=== PATIENT | female | born 1970 | race Caucasian/White ===

== ENCOUNTER 2025-04-16 17:34 | Observation (INO) | payer SELFPAY ==
[2025-04-16] VITALS (15 sets, daily range): BP systolic 86–145; BP diastolic 48–70; PULSE 92–117; RESP 14–22; TEMP 36.6–36.7; O2SAT 28–100; BMI 25.7; BMI 27.9
--- NOTE | 2025-04-16 17:47 | CT_ITS ---
PROCEDURE INFORMATION: Exam: CTA Neck With Contrast Exam date and time: 04/16/2025 8:01 PM Age: 55 years old Clinical indication: Dizziness and giddiness TECHNIQUE: Imaging protocol: Computed tomographic angiography of the neck with contrast. Exam focused on the cervical segments of the vasculature. 3D rendering (Not supervised by radiologist): MIP and/or 3D reconstructed images were created by the technologist. Radiation optimization: All CT scans at this facility use at least one of these dose optimization techniques: automated exposure control; mA and/or kV adjustment per patient size (includes targeted exams where dose is matched to clinical indication); or iterative reconstruction. Contrast material: ISOVUE; Contrast volume: 80 ml; Contrast route: INTRAVENOUS (IV); COMPARISON: CT HEAD/BRAIN WO CON 04/16/2025 7:49 PM FINDINGS: Right common carotid artery: Normal. No stenosis. No dissection or occlusion. Right internal carotid artery: Proximal segment evaluation mildly limited by motion artifact and streak artifact. Moderate-severe distal segment tortuosity with mild kinking but no significant stenosis. No dissection or occlusion. Right external carotid artery: Normal. No stenosis. No dissection or occlusion. Left common carotid artery: Variant origin from the brachiocephalic artery. No stenosis. No dissection or occlusion. Left internal carotid artery: Mild distal segment tortuosity. No stenosis. No dissection or occlusion. Left external carotid artery: Normal. No stenosis. No dissection or occlusion. Right vertebral artery: Right vertebral artery is mildly dominant. No stenosis. No dissection or occlusion. Left vertebral artery: Normal. No stenosis. No dissection or occlusion. Brachiocephalic artery: The brachiocephalic artery is unremarkable. Right subclavian artery: The right subclavian artery is unremarkable. Left subclavian artery: The left subclavian artery is unremarkable. Aorta: The visualized aortic arch demonstrates is unremarkable. 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 Subcentimeter nodules in the right thyroid lobe do not require further evaluation. Soft tissues: No significant soft tissue swelling or hematoma. Bones/joints: No acute osseous abnormalities are identified. Mild cervical spondylosis. Lungs: The visualized pulmonary apices are clear. IMPRESSION: No acute vascular abnormalities. No evidence of arterial occlusion or significant stenosis. COMMENTS: Consistent with the [employer]'s Incidental Findings Committee white paper (J Am Lillian Radiol 2015): In patients aged 35 years and older with an incidental thyroid nodule equal to or greater than 1.[address], MRI or extrathyroidal US, further evaluation with dedicated thyroid US is recommended for patients with normal life expectancy and without comorbidities. For smaller nodules without suspicious features, no further evaluation or follow up is recommended. REFERENCES: NASCET CRITERIA. The degree of stenosis in the cervical segment of the internal carotid artery is based on NASCET criteria. Normal is no stenosis. Mild is less than 50% stenosis. Moderate is 50-69% stenosis. Severe is 70% to 99% stenosis. Total occlusion is no detectable patent lumen.
--- NOTE | 2025-04-16 17:47 | CT_ITS ---
PROCEDURE INFORMATION: Exam: CTA Head With Contrast, Arteriography Exam date and time: 04/16/2025 8:01 PM Age: 55 years old Clinical indication: Dizziness and giddiness TECHNIQUE: Imaging protocol: Computed tomographic angiography of the head with contrast. Exam focused on the arteries. 3D rendering (Not supervised by radiologist): MIP and/or 3D reconstructed images were created by the technologist. Radiation optimization: All CT scans at this facility use at least one of these dose optimization techniques: automated exposure control; mA and/or kV adjustment per patient size (includes targeted exams where dose is matched to clinical indication); or iterative reconstruction. Contrast material: ISOUVE 370; Contrast volume: 80 ml; Contrast route: INTRAVENOUS (IV); COMPARISON: CT HEAD/BRAIN WO CON 04/16/2025 7:49 PM FINDINGS: ANTERIOR CIRCULATION: Right internal carotid artery: The right ICA petrous, cavernous, and supraclinoid segments are unremarkable. Right middle cerebral artery: Unremarkable. No occlusion or significant stenosis. No aneurysm. Right anterior cerebral artery: Unremarkable. No occlusion or significant stenosis. No aneurysm. The anterior communicating artery is unremarkable. Left internal carotid artery: The left ICA petrous, cavernous, and supraclinoid segments are unremarkable. Left middle cerebral artery: Unremarkable. No occlusion or significant stenosis. No aneurysm. Left anterior cerebral artery: Unremarkable. No occlusion or significant stenosis. No aneurysm. POSTERIOR CIRCULATION: Right vertebral artery: Right vertebral artery is dominant. No occlusion or significant stenosis. No aneurysm. Left vertebral artery: Unremarkable. No occlusion or significant stenosis. No aneurysm. Basilar artery: Unremarkable. No occlusion or significant stenosis. No aneurysm. Right posterior cerebral artery: Moderate-sized right posterior communicating artery present with small variant infundibulum at its ICA origin. No occlusion or significant stenosis. No aneurysm. Left posterior cerebral artery: Normal variant persistent origin with hypoplastic left P1 segment. No occlusion or significant stenosis. No aneurysm. Veins: The dural venous sinuses and major cortical veins enhance appropriately without evidence of thrombosis. Brain: No enhancing brain lesions or vascular malformations are identified. Cerebral ventricles: No ventriculomegaly. Paranasal sinuses: Mucous retention cyst versus polyp formation in the left maxillary sinus suggesting mild chronic sinus inflammatory disease. No fluid levels. Visualized paranasal sinuses are otherwise clear. Bones/joints: Unremarkable. No acute fracture. Soft tissues: Unremarkable. IMPRESSION: 1. No acute vascular abnormalities. No evidence of large vessel occlusion or significant stenosis. 2. No acute intracranial process.
--- NOTE | 2025-04-16 17:47 | XR_ITS ---
PROCEDURE INFORMATION: Exam: XR Chest Exam date and time: 04/16/2025 8:02 PM Age: 55 years old Clinical indication: Shortness of breath; Additional info: Shortness of air TECHNIQUE: Imaging protocol: Radiologic exam of the chest. Views: 1 view. COMPARISON: CT ANGIO NECK 04/16/2025 8:01 PM FINDINGS: Lungs: Unremarkable. No consolidation. Pleural spaces: Unremarkable. No pleural effusion. No pneumothorax. Heart/Mediastinum: Unremarkable. No cardiomegaly. Bones/joints: Unremarkable. IMPRESSION: No acute findings.
--- NOTE | 2025-04-16 17:47 | CT_ITS ---
PROCEDURE INFORMATION: Exam: CT Head Without Contrast Exam date and time: 04/16/2025 7:49 PM Age: 55 years old Clinical indication: Dizziness TECHNIQUE: Imaging protocol: Computed tomography of the head without contrast. Radiation optimization: All CT scans at this facility use at least one of these dose optimization techniques: automated exposure control; mA and/or kV adjustment per patient size (includes targeted exams where dose is matched to clinical indication); or iterative reconstruction. COMPARISON: CT HEAD/BRAIN WO CON 04/16/2025 7:49 PM FINDINGS: Brain: Normal. No hemorrhage. Unremarkable white matter. No mass effect. Cerebral ventricles: No ventriculomegaly. Paranasal sinuses: Visualized sinuses are unremarkable. No fluid levels. Mastoid air cells: Visualized mastoid air cells are well aerated. Bones: Unremarkable. No acute fracture. Soft tissues: Unremarkable. IMPRESSION: Stable noncontrast CT brain. No acute intracranial abnormality.
--- NOTE | 2025-04-16 17:57 | ED_ITS ---
Discharge Plan Disposition Patient Disposition: Admitted Condition: Fair Clinical Impressions Clinical Impression: Vertigo, Nausea & vomiting Discharge ED Provider: Guero Birch General Adult HPI <YESI Choudhury - Last Filed: 04/16/25 22:11> General Chief complaint: Anxiety Stated complaint: Nausea and Vomiting Time Seen by Provider: 04/16/25 17:36 Mode of Arrival: EMS Source of Information: Patient Description of Symptoms (Recalled from ER Triage Doc. by RN): Pt reports doing laundry this AM and stood up and began to have dizziy, nausea, and vomiting. Upon EMS arrival pt reports tingling in bilateral hands and arms. Pt is tachypneic during triage. History of Present Illness HPI narrative: 55-year-old female presents emergency department via EMS for dizziness, discharge around 10 or 11 this a.m., when she stood up , she endorses nausea and vomiting and diarrhea all day, she reports numbness all over , has somewhat flight of ideas, but GCS of 15, with actively hyperventilating at the bedside, patient denies any fever or chills, denies any chest pain, shortness of breath, no abdominal pain, does admit to some pain after retching , denies any urinary type symptomatology, denies any constipation, denies any hematuria melena hematochezia or hematemesis, patient takes no other medications at home, has no other real relevant past medical history, denies any alcohol tobacco or other drug use. Initial triage vitals notable for tachycardia, and some tachypnea that improved after the patient was speaking to me. Denies any overt lightheadedness, denies any dizziness when sitting still, does admit to dizziness when moving the head . Onset (ago): hour(s) Related Data Home Medications ?Medication ?Instructions ?Recorded ?Confirmed No Known Home Medications 04/16/2503/22 Allergies Allergy/AdvReac Type Severity Reaction Status Date / Time albuterol AdvReac Mild Numbness Verified 04/16/25 18:01 PFS <YESI Choudhury - Last Filed: 04/16/25 22:11> [facility] Disclaimer: The information contained in this section may have been updated after the patient was seen, as this information can be updated by other users. Social History (Updated 04/16/25 @ 22:11 by YESI Choudhury) Smoking Status: Never smoker alcohol intake: never current occupational status: other Travel in the last 8 weeks?: None Have you lived/traveled outside [place] in past 30 days?: No Contact w/someone who lives/traveled outside US past 30 days?: No Exposure to someone with infectious disease in past 14 days?: No Do you have a fever (greater than 100.4 F or 38 C)?: No Have you tested positive for COVID-19?: No Exposed to someone with COVID-19 in past 14 days?: No Do you have a sore throat?: No Do you have a cough?: No Do you have any weakness?: No Do you have any diarrhea?: No Are you experiencing any unusual bleeding?: No Do you have any muscle aches/pain?: No Do you have any abdominal pain?: No Are you experiencing loss of taste or smell?: No <YESI Choudhury - Last Filed: 04/16/25 22:11> ROS Obtained: Yes All systems reviewed & no additional complaints except as documented Physical Exam <YESI Choudhury - Last Filed: 04/16/25 22:11> General General appearance: alert, in no apparent distress and anxious Comment: Patient has flight of ideas, moderately anxious appearing Head Head exam: atraumatic and normocephalic Eye Eye exam: Present PERRL and EOMI ENT ENT exam: Present mucous membranes moist Neck Neck exam: Present normal inspection Chest Chest inspection: Present normal inspection and symmetric chest wall rise Respiratory Respiratory exam: Present normal lung sounds bilaterally; Absent respiratory distress, wheezes or stridor Cardiovascular Cardiovascular exam: Present normal rhythm and tachycardia Abdominal Exam Abdominal exam: Present soft; Absent tenderness, guarding, rebound or rigidity Extremities Exam Extremities exam: Present normal inspection Neurological Exam Neurological exam: Present alert, oriented X3 and other (Patient moves extremities to command, does somewhat not cooperate with exam, though strength examination is somewhat complicated, GCS of 15, no obvious focal neurological deficits) Psychiatric Psychiatric exam: Present normal affect and anxious Skin Skin exam: Present warm and dry Medical Decision Making <YESI Choudhury - Last Filed: 04/16/25 22:11> Medical Records Medical records reviewed: Yes I reviewed the patient's medical records. Screening: Per USPSTF and CDC recommendations, given the prevalence of disease in our region, it is our hospital?s policy to screen for HIV and viral Hepatitis for all patients aged 18 and over and those with ongoing risk factors. [place] Inquiry Pt receiving controlled substance: No [place] was queried for this patient: No Vital Signs: 04/16/25 17:41 04/16/25 17:46 04/16/25 18:00 Temperature 97.8 F Temperature Source Oral Pulse Rate 117 H 92 H Pulse Rate [Left] 100 H Respiratory Rate 22 Blood Pressure 99/70 L 114/67 Blood Pressure [Left Arm] 145/70 H Blood Pressure Mean 79 Blood Pressure Mean [Left Arm] 95 Blood Pressure Source Blood Pressure Source [Left Arm] Automatic Cuff Blood Pressure Position 02 Sat by Pulse Oximetry 99 70 L 99 Oxygen Delivery Method Room Air 04/16/25 18:30 04/16/25 19:37 04/16/25 20:30 Temperature Temperature Source Pulse Rate 98 H 94 H 97 H Pulse Rate [Left] Respiratory Rate Blood Pressure 107/55 L 119/49 L 89/57 L Blood Pressure [Left Arm] Blood Pressure Mean 72 Blood Pressure Mean [Left Arm] Blood Pressure Source Blood Pressure Source [Left Arm] Blood Pressure Position 02 Sat by Pulse Oximetry 99 100 98 Oxygen Delivery Method 04/16/25 20:36 04/16/25 20:53 04/16/25 21:00 Temperature Temperature Source Pulse Rate 97 H 99 H 98 H Pulse Rate [Left] Respiratory Rate Blood Pressure 86/48 L 100/61 L 88/48 L Blood Pressure [Left Arm] Blood Pressure Mean Blood Pressure Mean [Left Arm] Blood Pressure Source Blood Pressure Source [Left Arm] Blood Pressure Position 02 Sat by Pulse Oximetry 98 100 100 Oxygen Delivery Method 04/16/25 21:09 04/16/25 21:20 04/16/25 21:31 Temperature Temperature Source Pulse Rate 97 H 98 H Pulse Rate [Left] Respiratory Rate Blood Pressure 99/59 L 104/52 L 92/51 L Blood Pressure [Left Arm] Blood Pressure Mean Blood Pressure Mean [Left Arm] Blood Pressure Source Blood Pressure Source [Left Arm] Blood Pressure Position 02 Sat by Pulse Oximetry 100 96 97 Oxygen Delivery Method 04/16/25 22:22 04/16/25 22:29 04/16/25 22:40 Temperature 97.8 F Temperature Source Oral Pulse Rate 94 H Pulse Rate [Left] Respiratory Rate 18 Blood Pressure 104/59 L 119/49 L Blood Pressure [Left Arm] Blood Pressure Mean Blood Pressure Mean [Left Arm] Blood Pressure Source Automatic Cuff Blood Pressure Source [Left Arm] Blood Pressure Position Sitting 02 Sat by Pulse Oximetry 28 L Oxygen Delivery Method Room Air Room Air Lab Data Lab Results 04/16/25 19:10: WBC 11.3 H, RBC 5.20, Hgb 15.2, Hct 43.5, MCV 83.7, MCH 29.2, MCHC 34.9, RDW 12.1, Plt Count 294, MPV 8.9, Neut % (Auto) 86.8 H, Lymph % (Auto) 10.8, [place] % (Auto) 1.7, Eos % (Auto) 0.0 L, Baso % (Auto) 0.3, Neut # (Auto) 9.9 H, Lymph # (Auto) 1.2, [place] # (Auto) 0.2, Eos # (Auto) 0.0, Baso # (Auto) 0.0, D-Dimer 0.46, Sodium 137, Potassium 3.4 L, Chloride 101, Carbon Dioxide 23, Anion Gap 16.4 H, BUN 15, Creatinine 0.70, Estimated Creat Clear 100, Estimated GFR 88, Est GFR ( Amer) 106, Glucose 133 H, Calcium 10.2, Magnesium 2.1, Total Bilirubin 1.1, AST 32, ALT 20, Alkaline Phosphatase 83, Troponin I < 0.01, NT-Pro-B Natriuret Pep 61.6, Total Protein 8.4 H, Albumin 4.6, Globulin 3.8 H, Albumin/Globulin Ratio 1.2, TSH 0.87, Thyroxine (T4) 11.1 H , Plasma/Serum Alcohol < 10 04/16/25 19:23: Urine Color Yellow, Urine Appearance Sl cloudy, Urine pH >= 9.0 H, Ur Specific [place] 1.015, Urine Protein Negative, Urine Glucose (UA) Negative, Urine Ketones 3+, Urine Blood Negative, Urine Nitrate Negative, Urine Bilirubin Negative, Urine Urobilinogen 0.2, Ur Leukocyte Esterase Negative, Urine RBC 5-10, Urine WBC 3-5, Ur Squamous Epith Cells 10-20, Amorphous Sediment 1+, Urine Bacteria 2+, Urine Mucus 1+, Urine Opiates Screen Negative, Urine Methadone Screen Negative, Ur Barbituates Screen Negative, Ur Phencyclidine Scrn Negative, Ur Amphetamines Screen Negative, U Benzodiazepines Scrn Negative, Urine Cocaine Screen Negative, U Marijuana (THC) Screen Negative 04/16/25 21:07: Troponin I < 0.01 04/17/25 07:20 04/17/25 07:20 Orders (Tests/Meds): ED MEDICATIONS Generic Name Dose Route Start Last Admin Trade Name Frewade PRN Reason Stop Dose Admin Acetaminophen 650 mg 04/16/25 22:03 Acetaminophen 325mg Tab PO 05/16/25 22:02 Q4HP PRN Fever or Mild Pain (1-3) Al Hydrox/Mg Hydrox/Simethicone 30 ml 04/16/25 22:03 Aluminum/Magnesium/Simethicone 30ml Udc PO 05/16/25 22:02 QIDP PRN Dyspepsia Enoxaparin Sodium 40 mg 04/17/25 09:00 04/17/25 08:46 Enoxaparin 40mg/0.4ml Syringe SUBCUT 05/17/25 08:59 40 mg DAILY SHAYLA Administration Meclizine HCl 25 mg 04/17/25 11:57 Meclizine 25mg Tablet PO 05/17/25 11:56 TIDP PRN Dizziness Melatonin 5 mg 04/16/25 23:25 Melatonin 5mg Tablet PO 05/16/25 23:24 HSP PRN Insomnia Ondansetron HCl 4 mg 04/16/25 22:03 Ondansetron 4mg/2ml Vial IV 05/16/25 22:02 Q8HP PRN Nausea Sodium Chloride 10 ml 04/16/25 20:13 04/16/25 20:14 Sodium Chloride 0.9% 10ml Syr (Rad Only) IV 05/16/25 20:12 10 ml NEEDED PRN Administration Maintain IV Site Discontinued Medications Generic Name Dose Route Start Last Admin Trade Name Freq PRN Reason Stop Dose Admin Diazepam 5 mg 04/16/25 21:59 04/16/25 22:04 Diazepam 10mg/2ml Syringe IV 04/16/25 22:00 5 mg ONCE ONE Administration Hydroxyzine HCl 50 mg 04/16/25 23:40 04/16/25 23:59 Hydroxyzine 50mg/Ml Vial IM 04/16/25 23:41 50 mg ONCE ONE Administration Lactated Ringer's 1,000 mls @ 999 mls/hr 04/16/25 20:43 04/16/25 20:48 Lactated Ringer's 1000 Ml Bag IV 04/16/25 21:43 999 mls/hr .Q1H1M ONE Administration Sodium Chloride 1,000 mls @ 75 mls/hr 04/16/25 22:15 04/16/25 22:22 Sod Chlor 0.9% 1000ml Bag IV 05/16/25 22:14 75 mls/hr .[id number] SHAYLA Administration Iopamidol 80 ml 04/16/25 20:13 04/16/25 20:14 Iopamidol-370 (76%);100ml Bottle IV 04/16/25 20:14 80 ml ONCE ONE Administration Meclizine HCl 50 mg 04/16/25 17:48 04/16/25 18:12 Meclizine 25mg Tablet PO 04/16/25 17:49 50 mg ONCE ONE Administration Meclizine HCl 25 mg 04/16/25 22:10 04/16/25 22:22 Meclizine 25mg Tablet PO 04/16/25 22:11 25 mg TID ONE Administration Meclizine HCl 25 mg 04/17/25 07:50 04/17/25 08:46 Meclizine 25mg Tablet PO 05/16/25 22:09 25 mg TID SHAYLA Administration Ondansetron HCl 4 mg 04/16/25 20:43 04/16/25 20:48 Ondansetron 4mg/2ml Vial IV 04/16/25 20:44 4 mg ONCE ONE Administration Potassium Chloride 40 meq 04/17/25 09:00 04/17/25 08:49 Potassium Chloride 20meq Tab PO 04/17/25 09:01 Not Given ONCE ONE Scopolamine 1 each 04/17/25 11:57 04/17/25 13:04 Scopolamine 1.5mg/72hrs Patch TD 04/17/25 11:58 1 each ONCE ONE Administration Sodium Chloride 50 ml 04/16/25 20:13 04/16/25 20:14 0.9 % Sodium Chloride 50 Ml Vial IV 04/16/25 20:14 50 ml ONCE ONE Administration ORDERS Category Date Time Status CT angio head Stat Cat Scan 04/16/25 17:[address] angio neck Stat Cat Scan 04/16/25 17:[address] head/brain wo con Stat Cat Scan 04/16/25 17:47 Completed XR chest portable Stat Exams 04/16/25 17:47 Completed Basic Metabolic Panel AMLAB Lab 04/17/25 07:20 Completed Complete Blood Count Auto Diff AMLAB Lab 04/17/25 07:20 Completed Complete Blood Count Auto Diff Stat Lab 04/16/25 19:10 Completed Comprehensive Metabolic Panel Stat Lab 04/16/25 19:10 Completed D-Dimer Stat Lab 04/16/25 19:10 Completed Drug Screen,Urine Stat Lab 04/16/25 19:23 Completed Ethyl Alcohol Stat Lab 04/16/25 19:10 Completed Magnesium Stat Lab 04/16/25 19:10 Completed NT Pro Brain Natriuretic Pep. Stat Lab 04/16/25 19:10 Completed T4 (Thyroxine) Stat Lab 04/16/25 19:10 Completed TSH [Thyroid Stimulating Hormone] Stat Lab 04/16/25 19:10 Completed Troponin I Q3H Lab 04/16/25 21:07 Completed Troponin I Q3H Lab 04/17/25 00:37 Completed Troponin I Stat Lab 04/16/25 19:10 Completed Urinalysis and Microscopic Stat Lab 04/16/25 19:23 Completed Urine Culture Stat Micro 04/16/25 19:23 Received Medical Decision Narrative: 55-year-old female presents the emergency department with dizziness, nausea and vomiting, differential diagnose include but not limited to peripheral vertigo, central vertigo, anxiety reaction, panic attack, electrolyte disturbance, cardiac arrhythmia, acute psychosis, acute intoxication, among others. Discussed patient case with physician Will obtain basic labs, D-dimer, UDS, urinalysis, ethyl alcohol level, magnesium level proBNP, TSH/T4, troponin, EKG, CT head without contrast, CTA head and neck without contrast, and CXR. Give 50 mg p.o. meclizine for dizziness. CBC is notable for mild leukocytosis 11.3. D-dimer is 0.46, thus negative for VTE. CMP noted for minimal hypokalemia at 3.4, otherwise unremarkable CMP, ethyl alcohol level within normal limits. Urine is notable for elevated urine pH of 9, 3+ ketonuria, negative nitrites, negative hematuria, negative leukocyte esterase. TSH within normal limits, free T4 is minimally elevated 11.1 UDS negative. Patient still complaining of some dizziness and nausea, will give 4 mg IV Zofran and 1 L LR IV. Reviewed the patient's CTA neck with and without contrast along with the corresponding radiological report, no acute vascular abnormality, no evidence of arterial occlusion or significant stenosis. I reviewed the patient's CT head without contrast along the corresponding radiologic report, no acute intracranial abnormality. I reviewed the patient's CTA head with and without contrast on the corresponding radiologic report, no acute vascular abnormalities, no evidence of large vessel occlusion or significant stenosis, no acute intracranial process. I reviewed the patient's chest x-ray along with corresponding radiologic report, no acute findings. I along with the attending physician attempted to perform Amado maneuver to alleviate the patient's symptomatology, unsuccessful, patient still having vertiginous type symptomatology, nausea and vomiting, due to persistent dizziness, and vertiginous symptoms, will give 5 mg IV Valium, I do think there is a anxiety type reaction as patient is actively hyperventilating, but does still have vertiginous type symptomatology, thus will admit for MRI brain without contrast and possible consultation with physical therapy/vestibular therapy. I discussed this plan for admission with the patient and family at the bedside. Patient and family agree with current mission plan/treatment plan. I discussed this patient's case with the hospitalist provider Tatiana Naik APRN at approximately 10 PM, she is agreement with current admission plan/treatment plan. <Guero Birch MD - Last Filed: 04/17/25 15:13> Vital Signs: 04/16/25 17:41 04/16/25 17:46 04/16/25 18:00 Temperature 97.8 F Temperature Source Oral Pulse Rate 117 H 92 H Pulse Rate [Left] 100 H Respiratory Rate 22 Blood Pressure 99/70 L 114/67 Blood Pressure [Left Arm] 145/70 H Blood Pressure Mean 79 Blood Pressure Mean [Left Arm] 95 Blood Pressure Source Blood Pressure Source [Left Arm] Automatic Cuff Blood Pressure Position 02 Sat by Pulse Oximetry 99 70 L 99 Oxygen Delivery Method Room Air 04/16/25 18:30 04/16/25 19:37 04/16/25 20:30 Temperature Temperature Source Pulse Rate 98 H 94 H 97 H Pulse Rate [Left] Respiratory Rate Blood Pressure 107/55 L 119/49 L 89/57 L Blood Pressure [Left Arm] Blood Pressure Mean 72 Blood Pressure Mean [Left Arm] Blood Pressure Source Blood Pressure Source [Left Arm] Blood Pressure Position 02 Sat by Pulse Oximetry 99 100 98 Oxygen Delivery Method 04/16/25 20:36 04/16/25 20:53 04/16/25 21:00 Temperature Temperature Source Pulse Rate 97 H 99 H 98 H Pulse Rate [Left] Respiratory Rate Blood Pressure 86/48 L 100/61 L 88/48 L Blood Pressure [Left Arm] Blood Pressure Mean Blood Pressure Mean [Left Arm] Blood Pressure Source Blood Pressure Source [Left Arm] Blood Pressure Position 02 Sat by Pulse Oximetry 98 100 100 Oxygen Delivery Method 04/16/25 21:09 04/16/25 21:20 04/16/25 21:31 Temperature Temperature Source Pulse Rate 97 H 98 H Pulse Rate [Left] Respiratory Rate Blood Pressure 99/59 L 104/52 L 92/51 L Blood Pressure [Left Arm] Blood Pressure Mean Blood Pressure Mean [Left Arm] Blood Pressure Source Blood Pressure Source [Left Arm] Blood Pressure Position 02 Sat by Pulse Oximetry 100 96 97 Oxygen Delivery Method 04/16/25 22:22 04/16/25 22:29 04/16/25 22:40 Temperature 97.8 F Temperature Source Oral Pulse Rate 94 H Pulse Rate [Left] Respiratory Rate 18 Blood Pressure 104/59 L 119/49 L Blood Pressure [Left Arm] Blood Pressure Mean Blood Pressure Mean [Left Arm] Blood Pressure Source Automatic Cuff Blood Pressure Source [Left Arm] Blood Pressure Position Sitting 02 Sat by Pulse Oximetry 28 L Oxygen Delivery Method Room Air Room Air Lab Data Lab Results 04/16/25 19:10: WBC 11.3 H, RBC 5.20, Hgb 15.2, Hct 43.5, MCV 83.7, MCH 29.2, MCHC 34.9, RDW 12.1, Plt Count 294, MPV 8.9, Neut % (Auto) 86.8 H, Lymph % (Auto) 10.8, [place] % (Auto) 1.7, Eos % (Auto) 0.0 L, Baso % (Auto) 0.3, Neut # (Auto) 9.9 H, Lymph # (Auto) 1.2, [place] # (Auto) 0.2, Eos # (Auto) 0.0, Baso # (Auto) 0.0, D-Dimer 0.46, Sodium 137, Potassium 3.4 L, Chloride 101, Carbon Dioxide 23, Anion Gap 16.4 H, BUN 15, Creatinine 0.70, Estimated Creat Clear 100, Estimated GFR 88, Est GFR ( Amer) 106, Glucose 133 H, Calcium 10.2, Magnesium 2.1, Total Bilirubin 1.1, AST 32, ALT 20, Alkaline Phosphatase 83, Troponin I < 0.01, NT-Pro-B Natriuret Pep 61.6, Total Protein 8.4 H, Albumin 4.6, Globulin 3.8 H, Albumin/Globulin Ratio 1.2, TSH 0.87, Thyroxine (T4) 11.1 H , Plasma/Serum Alcohol < 10 04/16/25 19:23: Urine Color Yellow, Urine Appearance Sl cloudy, Urine pH >= 9.0 H, Ur Specific [place] 1.015, Urine Protein Negative, Urine Glucose (UA) Negative, Urine Ketones 3+, Urine Blood Negative, Urine Nitrate Negative, Urine Bilirubin Negative, Urine Urobilinogen 0.2, Ur Leukocyte Esterase Negative, Urine RBC 5-10, Urine WBC 3-5, Ur Squamous Epith Cells 10-20, Amorphous Sediment 1+, Urine Bacteria 2+, Urine Mucus 1+, Urine Opiates Screen Negative, Urine Methadone Screen Negative, Ur Barbituates Screen Negative, Ur Phencyclidine Scrn Negative, Ur Amphetamines Screen Negative, U Benzodiazepines Scrn Negative, Urine Cocaine Screen Negative, U Marijuana (THC) Screen Negative 04/16/25 21:07: Troponin I < 0.01 Orders (Tests/Meds): ED MEDICATIONS Generic Name Dose Route Start Last Admin Trade Name Freq PRN Reason Stop Dose Admin Acetaminophen 650 mg 04/16/25 22:03 Acetaminophen 325mg Tab PO 05/16/25 22:02 Q4HP PRN Fever or Mild Pain (1-3) Al Hydrox/Mg Hydrox/Simethicone 30 ml 04/16/25 22:03 Aluminum/Magnesium/Simethicone 30ml Udc PO 05/16/25 22:02 QIDP PRN Dyspepsia Enoxaparin Sodium 40 mg 04/17/25 09:00 04/17/25 08:46 Enoxaparin 40mg/0.4ml Syringe SUBCUT 05/17/25 08:59 40 mg DAILY SHAYLA Administration Meclizine HCl 25 mg 04/17/25 11:57 Meclizine 25mg Tablet PO 05/17/25 11:56 TIDP PRN Dizziness Melatonin 5 mg 04/16/25 23:25 Melatonin 5mg Tablet PO 05/16/25 23:24 HSP PRN Insomnia Ondansetron HCl 4 mg 04/16/25 22:03 Ondansetron 4mg/2ml Vial IV 05/16/25 22:02 Q8HP PRN Nausea Sodium Chloride 10 ml 04/16/25 20:13 04/16/25 20:14 Sodium Chloride 0.9% 10ml Syr (Rad Only) IV 05/16/25 20:12 10 ml NEEDED PRN Administration Maintain IV Site Discontinued Medications Generic Name Dose Route Start Last Admin Trade Name Ricq PRN Reason Stop Dose Admin Diazepam 5 mg 04/16/25 21:59 04/16/25 22:04 Diazepam 10mg/2ml Syringe IV 04/16/25 22:00 5 mg ONCE ONE Administration Hydroxyzine HCl 50 mg 04/16/25 23:40 04/16/25 23:59 Hydroxyzine 50mg/Ml Vial IM 04/16/25 23:41 50 mg ONCE ONE Administration Lactated Ringer's 1,000 mls @ 999 mls/hr 04/16/25 20:43 04/16/25 20:48 Lactated Ringer's 1000 Ml Bag IV 04/16/25 21:43 999 mls/hr .Q1H1M ONE Administration Sodium Chloride 1,000 mls @ 75 mls/hr 04/16/25 22:15 04/16/25 22:22 Sod Chlor 0.9% 1000ml Bag IV 05/16/25 22:14 75 mls/hr .[id number] SHAYLA Administration Iopamidol 80 ml 04/16/25 20:13 04/16/25 20:14 Iopamidol-370 (76%);100ml Bottle IV 04/16/25 20:14 80 ml ONCE ONE Administration Meclizine HCl 50 mg 04/16/25 17:48 04/16/25 18:12 Meclizine 25mg Tablet PO 04/16/25 17:49 50 mg ONCE ONE Administration Meclizine HCl 25 mg 04/16/25 22:10 04/16/25 22:22 Meclizine 25mg Tablet PO 04/16/25 22:11 25 mg TID ONE Administration Meclizine HCl 25 mg 04/17/25 07:50 04/17/25 08:46 Meclizine 25mg Tablet PO 05/16/25 22:09 25 mg TID SHAYLA Administration Ondansetron HCl 4 mg 04/16/25 20:43 04/16/25 20:48 Ondansetron 4mg/2ml Vial IV 04/16/25 20:44 4 mg ONCE ONE Administration Potassium Chloride 40 meq 04/17/25 09:00 04/17/25 08:49 Potassium Chloride 20meq Tab PO 04/17/25 09:01 Not Given ONCE ONE Scopolamine 1 each 04/17/25 11:57 04/17/25 13:04 Scopolamine 1.5mg/72hrs Patch TD 04/17/25 11:58 1 each ONCE ONE Administration Sodium Chloride 50 ml 04/16/25 20:13 04/16/25 20:14 0.9 % Sodium Chloride 50 Ml Vial IV 04/16/25 20:14 50 ml ONCE ONE Administration ORDERS Category Date Time Status CT angio head Stat Cat Scan 04/16/25 17:[address] angio neck Stat Cat Scan 04/16/25 17:[address] head/brain wo con Stat Cat Scan 04/16/25 17:47 Completed XR chest portable Stat Exams 04/16/25 17:47 Completed Basic Metabolic Panel AMLAB Lab 04/17/25 07:20 Completed Complete Blood Count Auto Diff AMLAB Lab 04/17/25 07:20 Completed Complete Blood Count Auto Diff Stat Lab 04/16/25 19:10 Completed Comprehensive Metabolic Panel Stat Lab 04/16/25 19:10 Completed D-Dimer Stat Lab 04/16/25 19:10 Completed Drug Screen,Urine Stat Lab 04/16/25 19:23 Completed Ethyl Alcohol Stat Lab 04/16/25 19:10 Completed Magnesium Stat Lab 04/16/25 19:10 Completed NT Pro Brain Natriuretic Pep. Stat Lab 04/16/25 19:10 Completed T4 (Thyroxine) Stat Lab 04/16/25 19:10 Completed TSH [Thyroid Stimulating Hormone] Stat Lab 04/16/25 19:10 Completed Troponin I Q3H Lab 04/16/25 21:07 Completed Troponin I Q3H Lab 04/17/25 00:37 Completed Troponin I Stat Lab 04/16/25 19:10 Completed Urinalysis and Microscopic Stat Lab 04/16/25 19:23 Completed Urine Culture Stat Micro 04/16/25 19:23 Received ECG Data Tracing #1: I reviewed this ECG and interpreted as documented below: (This rhythm 90 bpm with OR 177, QRS 90, QTc 422[address] depressions in 2 3 and aVF without reciprocal elevations. Normal axis) Medical Decision Narrative: 55-year-old female presents the emergency department with dizziness, nausea and vomiting, differential diagnose include but not limited to peripheral vertigo, central vertigo, anxiety reaction, panic attack, electrolyte disturbance, cardiac arrhythmia, acute psychosis, acute intoxication, among others. Discussed patient case with physician Will obtain basic labs, D-dimer, UDS, urinalysis, ethyl alcohol level, magnesium level proBNP, TSH/T4, troponin, EKG, CT head without contrast, CTA head and neck without contrast, and CXR. Give 50 mg p.o. meclizine for dizziness. CBC is notable for mild leukocytosis 11.3. D-dimer is 0.46, thus negative for VTE. CMP noted for minimal hypokalemia at 3.4, otherwise unremarkable CMP, ethyl alcohol level within normal limits. Urine is notable for elevated urine pH of 9, 3+ ketonuria, negative nitrites, negative hematuria, negative leukocyte esterase. TSH within normal limits, free T4 is minimally elevated 11.1 UDS negative. Patient still complaining of some dizziness and nausea, will give 4 mg IV Zofran and 1 L LR IV. Reviewed the patient's CTA neck with and without contrast along with the corresponding radiological report, no acute vascular abnormality, no evidence of arterial occlusion or significant stenosis. I reviewed the patient's CT head without contrast along the corresponding radiologic report, no acute intracranial abnormality. I reviewed the patient's CTA head with and without contrast on the corresponding radiologic report, no acute vascular abnormalities, no evidence of large vessel occlusion or significant stenosis, no acute intracranial process. I reviewed the patient's chest x-ray along with corresponding radiologic report, no acute findings. I along with the attending physician attempted to perform Amado maneuver to alleviate the patient's symptomatology, unsuccessful, patient still having vertiginous type symptomatology, nausea and vomiting, due to persistent dizziness, and vertiginous symptoms, will give 5 mg IV Valium, I do think there is a anxiety type reaction as patient is actively hyperventilating, but does still have vertiginous type symptomatology, thus will admit for MRI brain without contrast and possible consultation with physical therapy/vestibular therapy. I discussed this plan for admission with the patient and family at the bedside. Patient and family agree with current mission plan/treatment plan. I discussed this patient's case with the hospitalist provider Tatiana Naik APRN at approximately 10 PM, she is agreement with current admission plan/treatment plan. I was consulted by the MARY ANN, and we discussed the complexity of the problems being addressed. I approved the treatment and management plan for this patient's care in the Emergency Department, thus performing a substantive portion of the medical decision making. Guero Birch MD Critical Care <YESI Choudhury - Last Filed: 04/16/25 22:11> Critical Care Time Critical Care Time: No
[2025-04-16] MEDS: MECLIZINE 25MG TABLET 50 MG PO (18:12)
--- NOTE | 2025-04-16 18:16 | ECG_ITS ---
APPROVED REPORT Exam: Resting ECG HR:90 bpm ECG Measurements Heart Rate 90 AXES IN 177 P 59 QRSd 90 QRS 42 QT 374 T 62 QTc 422 Conclusion Sinus rhythm Lateral and inferior depressions without reciprocal elevations Electronically signed by : SAÚL SAHNI, 04/16/2025 22:56:17
--- NOTE | 2025-04-16 19:19 | PC.NURSE ---
Davi FISCHER at bedside for report, starting IV #20 in right AC. Pt informed she needed to provide a urine sample, offered bedside, bed fuchs or pure wick. Pt is afraid to move, wishes to try a bedpan with daughter at bedside.
[2025-04-16 19:23] LABS: Basophils % 0.3 % (0.1-2.0); Hematocrit 43.5 % (37.0-47.0); Hemoglobin 15.2 g/dL (12.2-16.2); Immature Granulocytes # 0.04 10^3uL; Immature Granulocytes % 0.4 %; Lymphocytes # 1.2 K/mm3 (0.7-4.5); Lymphocytes % 10.8 % (10-50); Mean Corpuscular HGB Conc 34.9 g/dL (31.8-35.4); Mean Corpuscular Hemoglobin 29.2 pg (27.0-31.2); Mean Corpuscular Volume 83.7 fl (81-99); Mean Platelet Volume 8.9 fl (7.4-10.4); Monocytes # 0.2 K/mm3 (0.1-1.0); Monocytes % 1.7 % (1.7-9.3); Neutrophils # 9.9 K/mm3 (1.8-7.8); Neutrophils % 86.8 % (37.0-80.0); Nucleated Red Blood Cells # 0 10^3/uL; Nucleated Red Blood Cells % 0 %; Platelet Count 294 K/mm3 (142-424); Red Cell Distribution Width 12.1 % (11.5-17.5); Red Cell Distribution Width-SD 36.9 fL; White Blood Count 11.3 K/mm3 (4.8-10.8)
[2025-04-16 19:28] LABS: Microscopic, Urine URINE MICROSCOPIC (MICROSCOPIC)
[2025-04-16 19:29] LABS: Alanine Aminotransferase 20 U/L (12-78); Albumin Level 4.6 g/dl (3.5-5.0); Albumin/Globulin Ratio 1.2 (1.1-1.8); Alkaline Phosphatase 83 U/L (38-126); Anion Gap 16.4 mEq/L (5-15); Aspartate Amino Transferase 32 U/L (14-36); Bilirubin,Total 1.1 mg/dl (0.2-1.3); Blood Urea Nitrogen 15 mg/dl (7-17); Calcium 10.2 mg/dl (8.4-10.2); Carbon Dioxide 23 mmol/L (22.0-30.0); Chloride 101 mmol/L (98-107); Creatinine Clearance Estimated 100 mL/min (50-200); Estimated Glomerular Filt Rate 88 ml/min (>60); GFR (African American) 106 ML/MIN (>60); Globulin 3.8 g/dL (1.3-3.2); Glucose 133 mg/dl (74-100); Magnesium 2.1 mg/dl (1.6-2.3); Potassium 3.4 mmoL/L (3.5-5.1); Sodium 137 mmol/L (136-145); Total Protein,Serum 8.4 g/dl (6.3-8.2)
[2025-04-16 19:33] LABS: Ethyl Alcohol < 10 mg/dl (0-10)
[2025-04-16 19:33] LABS: Appearance,Urine SL CLOUDY (Clear); Bilirubin,Urine Negative (Negative); Blood, Urine Negative (Negative); Color,Urine YELLOW (Yellow); Glucose,Urine (UA) Negative (Negative); Ketones,Urine 3+ (Negative); Leukocyte Esterase,Urine Negative (Negative); Nitrate,Urine Negative (Negative); Protein,Urine Negative (Negative); Specific Gravity, Urine 1.015 (1.005-1.030); Urobilinogen,Urine 0.2 EU/dl (0.2)
[2025-04-16 19:34] LABS: D-Dimer 0.46 ug/mL (0.0-0.5)
[2025-04-16 19:35] LABS: PH,Urine >= 9.0 (5.0-8.5)
[2025-04-16 19:41] LABS: NT Pro Brain Natriuretic Pep. 61.6 pg/mL (0-125)
[2025-04-16 19:44] LABS: Troponin I < 0.01 ng/ml (0.00-0.034)
[2025-04-16 19:45] LABS: Barbiturates Screen,Urine Negative ng/ml (<200)
[2025-04-16 19:46] LABS: Benzodiazepines Screen,Urine Negative ng/ml (<200)
[2025-04-16 19:46] LABS: T4 (Thyroxine) 11.1 ug/dl (5.53-11.0)
[2025-04-16 19:47] LABS: Amphetamine/Metha Screen,Urine Negative ng/ml (<1000); Methadone Screen,Urine Negative ng/ml (<300)
[2025-04-16 19:48] LABS: Cannabinoid Screen,Urine Negative ng/ml (<50); Cocaine Screen,Urine Negative ng/ml (<300)
[2025-04-16 19:49] LABS: Opiate Screen,Urine Negative ng/ml (<300)
[2025-04-16 19:50] LABS: Amorphous Sediment,Urine 1+ /lpf; Bacteria,Urine 2+ /lpf; Mucus,Urine 1+ /lpf; Phencyclidine Screen,Urine Negative ng/ml (<25)
[2025-04-16 19:59] LABS: Thyroid Stimulating Hormone 0.87 uIU/mL (0.465-4.68)
[2025-04-16] MEDS: SODIUM CHLORIDE 0.9% 10ML SYR (RAD ONLY) 10 ML IV (20:14)
[2025-04-16] MEDS: 0.9 % SODIUM CHLORIDE 50 ML VIAL IV (20:14)
[2025-04-16] MEDS: IOPAMIDOL-370 (76%);100ML BOTTLE 80 ML IV (20:14)
[2025-04-16] MEDS: LACTATED RINGERS 1000ML 1,000 ML 999 ML IV (20:48)
[2025-04-16] MEDS: ONDANSETRON 4MG/2ML VIAL 4 MG IV (20:48)
[2025-04-16 21:42] LABS: Troponin I < 0.01 ng/ml (0.00-0.034)
[2025-04-16] MEDS: diazePAM 10MG/2ML SYRINGE 5 MG IV (22:04)
--- NOTE | 2025-04-16 22:06 | PC.NURSE ---
Amado Maneuver attempted at bedside with Dr Flores. No relief. 5 mg Valium administered pt relaxed at this time. Pt to be admitted for further evaluation
--- NOTE | 2025-04-16 22:21 | P.HP_ITS ---
<Statement entered by Hector Faye MD - 04/17/25 18:29> Rounded on patient after nurse practitioner. Personally examined and interviewed patient. Agree with exam findings and care plan as documented. History of Present Illness *Admission Date: 04/16/25 *Reason for visit:: Vertigo *History of present illness: Ms. Wayne was a 55-year-old female presents ER for evaluation of dizziness. Patient denies any past medical history. She states she was unloading laundry and she went to stand and got dizzy. She states she crawled on all fours and called her daughter. She states that she also called EMS and they told her she was hyperventilating and that there was nothing they can do for her. She states she remained dizzy from 11 100-13 100 today. She states that after she vomited she thought she would feel better but then began to hyperventilate again. She reports she had diarrhea and continued vomiting. She states that she then laid on the floor for 3 hours without moving. She states from there at 1700 she got on the couch and still had no change. She reports tingling all over, diaphoresis, and cold intolerance all day today. She states that every time she moves her head position she vomits. Patient denies fever, cough, congestion, runny nose, chest pain, constipation, headache, lightheadedness, or syncope. [facility] Disclaimer: The information contained in this section may have been updated after the patient was seen, as this information can be updated by other users. Social History (Updated 04/16/25 @ 22:11 by YESI Choudhury) Smoking Status: Never smoker alcohol intake: never current occupational status: other Travel in the last 8 weeks?: None Have you lived/traveled outside [place] in past 30 days?: No Contact w/someone who lives/traveled outside US past 30 days?: No Exposure to someone with infectious disease in past 14 days?: No Do you have a fever (greater than 100.4 F or 38 C)?: No Have you tested positive for COVID-19?: No Exposed to someone with COVID-19 in past 14 days?: No Do you have a sore throat?: No Do you have a cough?: No Do you have any weakness?: No Do you have any diarrhea?: No Are you experiencing any unusual bleeding?: No Do you have any muscle aches/pain?: No Do you have any abdominal pain?: No Are you experiencing loss of taste or smell?: No Review of Systems Constitutional Constitutional: Reports chills, Reports difficulty sleeping (chronic), Denies fever(s) and Denies headache(s) ENT Ears, Nose, Mouth, and Throat: Reports dizziness, Denies headache(s) and Denies nasal congestion *Cardiovascular Cardiovascular: Denies chest pain and Reports dyspnea *Respiratory Respiratory: Denies cough and Reports dyspnea *Gastrointestinal Gastrointestinal: Reports abdominal pain, Reports loose stools, Reports nausea and Reports vomiting *Genitourinary Genitourinary: Reports system reviewed and no additional complaints, except as documented *Musculoskeletal Musculoskeletal: Reports tingling *Neurologic Neurologic: Reports dizziness, Denies headache(s) and Reports tingling Psychiatric Psychiatric: Denies anxiety Meds Home Medications and Allergies Home Medications ?Medication ?Instructions ?Recorded ?Confirmed ?Type No Known Home Medications 04/16/2503/22 History New Prescriptions to Start Prescriptions: Allergies Allergy/AdvReac Type Severity Reaction Status Date / Time albuterol AdvReac Mild Numbness Verified 04/16/25 18:01 Exam Data for Last 24 hours Vital signs and Labs for Last 24 Hours: Temp Pulse Resp BP Pulse Ox O2 Del Method 97.8 F 98 H 22 92/51 L 97 Room Air 04/16/25 17:41 04/16/25 21:31 04/16/25 17:41 04/16/25 21:31 04/16/25 21:31 04/16/25 17:41 Laboratory Results - last 24 hr 04/16/25 19:10: WBC 11.3 H, RBC 5.20, Hgb 15.2, Hct 43.5, MCV 83.7, MCH 29.2, MCHC 34.9, RDW 12.1, Plt Count 294, MPV 8.9, Neut % (Auto) 86.8 H, Lymph % (Auto) 10.8, [place] % (Auto) 1.7, Eos % (Auto) 0.0 L, Baso % (Auto) 0.3, Neut # (Auto) 9.9 H, Lymph # (Auto) 1.2, [place] # (Auto) 0.2, Eos # (Auto) 0.0, Baso # (Auto) 0.0, D-Dimer 0.46, Sodium 137, Potassium 3.4 L, Chloride 101, Carbon Dioxide 23, Anion Gap 16.4 H, BUN 15, Creatinine 0.70, Estimated Creat Clear 100, Estimated GFR 88, Est GFR ( Amer) 106, Glucose 133 H, Calcium 10.2, Magnesium 2.1, Total Bilirubin 1.1, AST 32, ALT 20, Alkaline Phosphatase 83, Troponin I < 0.01, NT-Pro-B Natriuret Pep 61.6, Total Protein 8.4 H, Albumin 4.6, Globulin 3.8 H, Albumin/Globulin Ratio 1.2, TSH 0.87, Thyroxine (T4) 11.1 H , Plasma/Serum Alcohol < 10 04/16/25 19:23: Urine Color Yellow, Urine Appearance Sl cloudy, Urine pH >= 9.0 H, Ur Specific [place] 1.015, Urine Protein Negative, Urine Glucose (UA) Negative, Urine Ketones 3+, Urine Blood Negative, Urine Nitrate Negative, Urine Bilirubin Negative, Urine Urobilinogen 0.2, Ur Leukocyte Esterase Negative, Urine RBC 5-10, Urine WBC 3-5, Ur Squamous Epith Cells 10-20, Amorphous Sediment 1+, Urine Bacteria 2+, Urine Mucus 1+, Urine Opiates Screen Negative, Urine Methadone Screen Negative, Ur Barbituates Screen Negative, Ur Phencyclidine Scrn Negative, Ur Amphetamines Screen Negative, U Benzodiazepines Scrn Negative, Urine Cocaine Screen Negative, U Marijuana (THC) Screen Negative 04/16/25 21:07: Troponin I < 0.01 I & O for Last 24 hours: Intake & Output 04/13/25 04/14/25 04/15/25 04/16/25 23:59 23:59 23:59 23:59 Weight 68.039 kg *Routine HEENT Exam Head: Present normocephalic and atraumatic Eye: Present EOMI ENT: Present mucous membranes moist and oropharynx clear *Routine Neck Exam Neck: Present supple and full ROM *Routine Respiratory Exam Respiratory: Present CTA bilaterally and normal respiratory effort; Absent accessory muscle use or respiratory distress *Routine Cardiovascular Exam Cardiovascular: Present RRR, Normal S1 and Normal S2 *Routine Abdominal Exam Abdominal: Present soft and normoactive bowel sounds; Absent tenderness or distended *Routine Rectal Exam Rectal:: deferred *Routine Genitalia Exam Genitalia:: deferred *Routine Extremities Exam Extremities: Present full ROM, pulses intact and normal capillary refill; Absent edema *Routine Skin Exam Skin: Present intact, dry and warm *Routine Neurological Exam Neurological: Present alert, oriented X3 and CN II-XII intact Comments: grossly anxious Assessment and Plan *Assessment and plan (1) Nausea & vomiting: Status: Acute Category: Medical Code(s): R11.2 - Nausea with vomiting, unspecified Plan: Continue antiemetics as needed (2) Vertigo: Status: Acute Category: Medical Code(s): R42 - Dizziness and giddiness Plan: MRI of the brain pending Meclizine 25 mg 3 times daily NS at 75 mL an hour PT consult (3) Anxiety: Status: Acute Category: Medical Code(s): F41.9 - Anxiety disorder, unspecified Plan: Hydroxyzine 50 mg IM once Hydroxyzine 50 mg p.o. 3 times daily as needed for anxiety (4) On deep vein thrombosis (DVT) prophylaxis: Status: Acute Category: Medical Code(s): Z79.899 - Other manager practice (current) drug therapy Plan: Enoxaparin 40 mg subcu daily Ambulate as tolerated
[2025-04-16] MEDS: MECLIZINE 25MG TABLET 25 MG PO (22:22)
[2025-04-16] MEDS: 0.9 % SODIUM CHLORIDE 1000ML 1,000 ML 75 ML IV (22:22)
[2025-04-16] MEDS: hydrOXYzine 50MG/ML VIAL 50 MG IM (23:59)
[2025-04-17 01:50] LABS: Troponin I < 0.01 ng/ml (0.00-0.034)
--- NOTE | 2025-04-17 03:12 | PC.NURSE ---
upon arrival to med /surg from the ED, Pt. is moaning and crying and very anxious. Pt. difficult to move from ER stretcher to the bed. Pt. c/o dizziness and nausea. Pt. is hyperventilating and c/o shortness of breath, numbness and tingling alll over her body, heavyness in her chest. Pt. insistant something is wrong besides the Vertigo sh was DX. with. Pt. had Fluids, Meclazine and Valium in the ED the medications were not effective, Laura Naik APRN at bedside. to evaluate patient. Spoke to patient about anxiety and the related symptoms of anxiety. Pt. states she does not have anxiety and something is very wrong. Pt. also saying you just want to put me to sleep and not deal with this problem Laura CHANG offered patient medication to control the anxiety symptoms. Pt. refused PO Visteral due to nausea. Pt. given Visteral per IM injection. Post IM injection Pt. did calm down and SOB, heaviness of chest, numbness and tingling resolved. Pt. did fall asleep and has been comfortable . Pt. daughter at bedside.
[2025-04-17 04:00] VITALS: BP 101/43; PULSE 91; RESP 16; TEMP 36.6; O2SAT 97; BMI 28.6
--- NOTE | 2025-04-17 04:54 | PC.NURSE ---
Pt. sleeping , daughter remains at bedside. when patient was calm and anxiety was under control. Pt. was alert and orientated x 4. Pt. on room air. Personal items and call colindres in reach. safety measures in place.
--- NOTE | 2025-04-17 04:59 | PC.NURSE ---
Fresh Ice water given and room trash taken out at 0440 by this SRNA
[2025-04-17 07:46] LABS: Basophils % 0.4 % (0.1-2.0); Eosinophils # 0.1 Kmm3 (0.0-0.4); Eosinophils % 0.6 % (0.1-12.0); Hematocrit 40.6 % (37.0-47.0); Hemoglobin 13.9 g/dL (12.2-16.2); Immature Granulocytes # 0.03 10^3uL; Immature Granulocytes % 0.3 %; Lymphocytes # 2.5 K/mm3 (0.7-4.5); Mean Corpuscular HGB Conc 34.2 g/dL (31.8-35.4); Mean Corpuscular Hemoglobin 29.4 pg (27.0-31.2); Mean Platelet Volume 9.1 fl (7.4-10.4); Monocytes # 0.6 K/mm3 (0.1-1.0); Neutrophils # 7.2 K/mm3 (1.8-7.8); Neutrophils % 68.7 % (37.0-80.0); Nucleated Red Blood Cells # 0 10^3/uL; Nucleated Red Blood Cells % 0 %; Platelet Count 261 K/mm3 (142-424); Red Blood Count 4.72 M/mm3 (4.20-5.40); Red Cell Distribution Width 12.7 % (11.5-17.5); Red Cell Distribution Width-SD 39.7 fL; White Blood Count 10.4 K/mm3 (4.8-10.8)
[2025-04-17 08:00] VITALS: BP 102/51; PULSE 91; RESP 16; TEMP 36.6; O2SAT 98
[2025-04-17 08:21] LABS: Chloride 105 mmol/L (98-107); Sodium 141 mmol/L (136-145)
[2025-04-17 08:22] LABS: Potassium 3.2 mmoL/L (3.5-5.1)
[2025-04-17 08:24] LABS: Blood Urea Nitrogen 12 mg/dl (7-17); Creatinine Clearance Estimated 112 mL/min (50-200); Estimated Glomerular Filt Rate 88 ml/min (>60); GFR (African American) 106 ML/MIN (>60)
[2025-04-17 08:25] LABS: Anion Gap 14.2 mEq/L (5-15); Calcium 8.5 mg/dl (8.4-10.2); Carbon Dioxide 25 mmol/L (22.0-30.0); Glucose 88 mg/dl (74-100)
[2025-04-17] MEDS: ENOXAPARIN 40MG/0.4ML SYRINGE 40 MG SUBCUT (08:46)
[2025-04-17] MEDS: MECLIZINE 25MG TABLET 25 MG PO ×2 (08:46→17:11)
--- NOTE | 2025-04-17 11:58 | EXP.ACUTE.PN ---
Subjective *Date: 04/17/25 *Time: 19:22 Interval history: Still feeling quite dizzy this morning, feels comfortable laying on her right side. States that when she rolls to the left she feels like she is going to throw up. Stable on room air. Threw up overnight with movement, still having nausea but no emerald emesis this morning. Afebrile. Stable on room air. Medical Exam Vital signs and Labs for Last 24 Hours: Vital Signs Temp Pulse Pulse Resp BP BP Pulse Ox 04/17/25 09:00 04/17/25 08:00 04/17/25 07:00 04/17/25 05:00 04/17/25 04:00 97.8 F 91 H 16 101/43 L 97 04/17/25 03:00 04/17/25 01:00 04/16/25 23:45 04/16/25 23:00 98.0 F 95 H 14 104/59 L 98 04/16/25 22:40 97.8 F 94 H 18 119/49 L 04/16/25 22:29 104/59 L 28 L 04/16/25 22:22 04/16/25 21:31 98 H 92/51 L 97 04/16/25 21:20 104/52 L 96 04/16/25 21:09 97 H 99/59 L 100 04/16/25 21:00 98 H 88/48 L 100 04/16/25 20:53 99 H 100/61 L 100 04/16/25 20:36 97 H 86/48 L 98 04/16/25 20:30 97 H 89/57 L 98 04/16/25 19:37 94 H 119/49 L 100 04/16/25 18:30 98 H 107/55 L 99 04/16/25 18:00 92 H 114/67 99 04/16/25 17:46 117 H 99/70 L 70 L 04/16/25 17:41 97.8 F 100 H 22 145/70 H 99 O2 Del Method 04/17/25 09:00 Room Air 04/17/25 08:00 Room Air 04/17/25 07:00 Room Air 04/17/25 05:00 Room Air 04/17/25 04:00 Room Air 04/17/25 03:00 Room Air 04/17/25 01:00 Room Air 04/16/25 23:45 Room Air 04/16/25 23:00 Room Air 04/16/25 22:40 Room Air 04/16/25 22:29 04/16/25 22:22 Room Air 04/16/25 21:31 04/16/25 21:20 04/16/25 21:09 04/16/25 21:00 04/16/25 20:53 04/16/25 20:36 04/16/25 20:30 04/16/25 19:37 04/16/25 18:30 04/16/25 18:00 04/16/25 17:46 04/16/25 17:41 Room Air Intake and Output 04/16/25 04/17/25 04/17/25 23:59 07:59 15:59 Intake Total 1000 / 1000 Balance 1000 / 1000 Intake: Intake, Total IV Amount 1000 / 1000 Lactated Ringers 1000ML 1,000 1000 / 1000 ml @ 999 mls/hr IV .Q1H1M ONE Rx#:[id number] Other: Number of Voids 1 Number of Unmeasured Voids 1 Weight 74.253 kg 76.204 kg Patient Weight 04/17/25 23:59 Weight 76.204 kg Laboratory Results - last 24 hr 04/16/25 19:10: WBC 11.3 H, RBC 5.20, Hgb 15.2, Hct 43.5, MCV 83.7, MCH 29.2, MCHC 34.9, RDW 12.1, Plt Count 294, MPV 8.9, Neut % (Auto) 86.8 H, Lymph % (Auto) 10.8, [place] % (Auto) 1.7, Eos % (Auto) 0.0 L, Baso % (Auto) 0.3, Neut # (Auto) 9.9 H, Lymph # (Auto) 1.2, [place] # (Auto) 0.2, Eos # (Auto) 0.0, Baso # (Auto) 0.0, D-Dimer 0.46, Sodium 137, Potassium 3.4 L, Chloride 101, Carbon Dioxide 23, Anion Gap 16.4 H, BUN 15, Creatinine 0.70, Estimated Creat Clear 100, Estimated GFR 88, Est GFR ( Amer) 106, Glucose 133 H, Calcium 10.2, Magnesium 2.1, Total Bilirubin 1.1, AST 32, ALT 20, Alkaline Phosphatase 83, Troponin I < 0.01, NT-Pro-B Natriuret Pep 61.6, Total Protein 8.4 H, Albumin 4.6, Globulin 3.8 H, Albumin/Globulin Ratio 1.2, TSH 0.87, Thyroxine (T4) 11.1 H, Plasma/Serum Alcohol < 10 04/16/25 19:23: Urine Color Yellow, Urine Appearance Sl cloudy, Urine pH >= 9.0 H, Ur Specific [place] 1.015, Urine Protein Negative, Urine Glucose (UA) Negative, Urine Ketones 3+, Urine Blood Negative, Urine Nitrate Negative, Urine Bilirubin Negative, Urine Urobilinogen 0.2, Ur Leukocyte Esterase Negative, Urine RBC 5-10, Urine WBC 3-5, Ur Squamous Epith Cells 10-20, Amorphous Sediment 1+, Urine Bacteria 2+, Urine Mucus 1+, Urine Opiates Screen Negative, Urine Methadone Screen Negative, Ur Barbituates Screen Negative, Ur Phencyclidine Scrn Negative, Ur Amphetamines Screen Negative, U Benzodiazepines Scrn Negative, Urine Cocaine Screen Negative, U Marijuana (THC) Screen Negative 04/16/25 21:07: Troponin I < 0.01 04/17/25 00:37: Troponin I < 0.01 04/17/25 07:20: WBC 10.4, RBC 4.72, Hgb 13.9, Hct 40.6, MCV 86.0, MCH 29.4, MCHC 34.2, RDW 12.7, Plt Count 261, MPV 9.1, Neut % (Auto) 68.7, Lymph % (Auto) 24.0, [place] % (Auto) 6.0, Eos % (Auto) 0.6, Baso % (Auto) 0.4, Neut # (Auto) 7.2, Lymph # (Auto) 2.5, [place] # (Auto) 0.6, Eos # (Auto) 0.1, Baso # (Auto) 0.0, Sodium 141, Potassium 3.2 L, Chloride 105, Carbon Dioxide 25, Anion Gap 14.2, BUN 12, Creatinine 0.70, Estimated Creat Clear 112, Estimated GFR 88, Est GFR ( Amer) 106, Glucose 88 D, Calcium 8.5 I & O for Labs for Last 24 Hours: Intake & Output 0604/15/25 04/16/25 04/17/25 23:59 23:59 23:59 23:59 Intake Total 1000 / 1000 Balance 1000 / 1000 Weight 74.253 kg 76.204 kg Constitutional: Present no acute distress, average body habitus and cooperative Head: Present atraumatic and normocephalic ENT: Present normal exam Respiratory: Present normal respiratory effort; Absent rhonchi, wheezes or crackles Cardiac: Present Reg Rate and Rhythm GI: Present soft and normal bowel sounds; Absent distention or tenderness Extremities: Present normal inspection and full ROM Skin: Present intact; Absent erythema Neuro: Present Grossly Intact, alert, awake, oriented x 3 and moves all extremities Comment:: Nystagmus when turns head to the right. Findings consistent with vertigo Assessment and Plan *Assessment and plan (1) Vertigo: Status: Acute Category: Medical Code(s): R42 - Dizziness and giddiness Plan: MRI of the brain pending Meclizine 25 mg 3 times daily NS at 75 mL an hour PT consult (2) Nausea & vomiting: Status: Acute Category: Medical Code(s): R11.2 - Nausea with vomiting, unspecified Plan: Continue antiemetics as needed (3) Anxiety: Status: Acute Category: Medical Code(s): F41.9 - Anxiety disorder, unspecified Plan: Hydroxyzine 50 mg IM once Hydroxyzine 50 mg p.o. 3 times daily as needed for anxiety (4) On deep vein thrombosis (DVT) prophylaxis: Status: Acute Category: Medical Code(s): Z79.899 - Other ocean transportation intermediary (current) drug therapy Plan: Enoxaparin 40 mg subcu daily Ambulate as tolerated Plan 55-year-old who presented with dizziness, nausea, vomiting. Findings most consistent with BPPV. Continues to require inpatient management due to inability to tolerate oral nutrition and persistent dizziness. Amado maneuver performed today. Labs this morning showed normal white count. Normal kidney function. Repeat BMP, CBC, magnesium ordered for the morning. Attempted Amado maneuver this afternoon, was able to tolerate without nausea or vomiting, dizziness showing some improvement. Encouraged advancement in diet. Initiated scopolamine patch behind right ear. Continue meclizine 25 mgs p.o. as needed every 8 hours. Stable on room air. Will monitor overnight. CTs per my review with no acute abnormalities. Differential includes BPPV, otolith dysfunction, vestibular neuritis. Low concern for stroke. If not improving, will consider MRI as an outpatient or acutely as an inpatient if still admitted on Saturday.
[2025-04-17] MEDS: SCOPOLAMINE 1.5MG/72HRS PATCH 1 EACH TD (13:04)
--- NOTE | 2025-04-17 15:43 | PC.NURSE ---
AOX4, HAS RESTED IN BED FOR MOST OF THE DAY WITH FAMILY AT BEDSIDE. STILL C/O VERTIGO WITH RISING AND CHANGES IN POSITION. HAS MAINLY LAID ON HER RIGHT SIDE.
[2025-04-17 16:00] VITALS: BP 104/57; PULSE 77; RESP 16; TEMP 36.7; O2SAT 99
[2025-04-17 19:54] VITALS: BP 113/62; PULSE 69; RESP 16; TEMP 36.7; O2SAT 100
[2025-04-17 20:00] VITALS: O2SAT 100
[2025-04-17] MEDS: LACTATED RINGERS 1000ML 500 ML 250 ML IV (21:34)
[2025-04-17] MEDS: MELATONIN 5MG TABLET 5 MG PO (21:44)
[2025-04-18] MEDS: MECLIZINE 25MG TABLET 25 MG PO ×3 (00:33→10:54)
[2025-04-18 04:00] VITALS: BP 83/46; PULSE 83; RESP 12; TEMP 36.9; O2SAT 94; BMI 61.8
[2025-04-18 06:42] LABS: Basophils # 0.1 K/mm3 (0-0.2); Basophils % 0.6 % (0.1-2.0); Eosinophils # 0.1 Kmm3 (0.0-0.4); Eosinophils % 1.2 % (0.1-12.0); Hematocrit 39.6 % (37.0-47.0); Hemoglobin 13.5 g/dL (12.2-16.2); Immature Granulocytes # 0.01 10^3uL; Immature Granulocytes % 0.1 %; Lymphocytes # 2.6 K/mm3 (0.7-4.5); Lymphocytes % 30.4 % (10-50); Mean Corpuscular HGB Conc 34.1 g/dL (31.8-35.4); Mean Corpuscular Hemoglobin 29.7 pg (27.0-31.2); Mean Corpuscular Volume 87.2 fl (81-99); Mean Platelet Volume 8.8 fl (7.4-10.4); Monocytes # 0.5 K/mm3 (0.1-1.0); Monocytes % 6.2 % (1.7-9.3); Neutrophils # 5.3 K/mm3 (1.8-7.8); Neutrophils % 61.5 % (37.0-80.0); Nucleated Red Blood Cells # 0 10^3/uL; Nucleated Red Blood Cells % 0 %; Platelet Count 241 K/mm3 (142-424); Red Blood Count 4.54 M/mm3 (4.20-5.40); Red Cell Distribution Width 12.8 % (11.5-17.5); Red Cell Distribution Width-SD 40.7 fL; White Blood Count 8.6 K/mm3 (4.8-10.8)
[2025-04-18 06:58] LABS: Chloride 104 mmol/L (98-107)
[2025-04-18 06:59] LABS: Potassium 3.5 mmoL/L (3.5-5.1); Sodium 141 mmol/L (136-145)
[2025-04-18 07:01] LABS: Blood Urea Nitrogen 10 mg/dl (7-17); Creatinine Clearance Estimated 80 mL/min (50-200); Estimated Glomerular Filt Rate 88 ml/min (>60); GFR (African American) 106 ML/MIN (>60)
[2025-04-18 07:02] LABS: Anion Gap 13.5 mEq/L (5-15); Calcium 8.6 mg/dl (8.4-10.2); Carbon Dioxide 27 mmol/L (22.0-30.0); Glucose 106 mg/dl (74-100); Magnesium 2.2 mg/dl (1.6-2.3)
[2025-04-18 08:00] VITALS: BP 98/58; PULSE 78; RESP 16; TEMP 36.4; O2SAT 98
--- NOTE | 2025-04-18 08:13 | PC.NURSE ---
Pt. is alert and orientated x 4, Pt. on room air. Pt. continues to have dizziness with movement but it has improved some. Pt. tolerating small amounts of foods and fluids. Pt. sleeping off and on this shift. C/O mild nausea at times but no vomiting. at bedside. Personal items and call colindres in reach. safety measures in place.
[2025-04-18] MEDS: ENOXAPARIN 40MG/0.4ML SYRINGE 40 MG SUBCUT (08:34)
--- NOTE | 2025-04-18 12:19 | P.DS_ITS ---
General Admission date:: 04/16/25 Discharge date: 04/18/25 HPI HPI HPI: Ms. Wayne was a 55-year-old female presents ER for evaluation of dizziness. Patient denies any past medical history. She states she was unloading laundry and she went to stand and got dizzy. She states she crawled on all fours and called her daughter. She states that she also called EMS and they told her she was hyperventilating and that there was nothing they can do for her. She states she remained dizzy from 11 100-13 100 today. She states that after she vomited she thought she would feel better but then began to hyperventilate again. She reports she had diarrhea and continued vomiting. She states that she then laid on the floor for 3 hours without moving. She states from there at 1700 she got on the couch and still had no change. She reports tingling all over, diaphoresis, and cold intolerance all day today. She states that every time she moves her head position she vomits. Patient denies fever, cough, congestion, runny nose, chest pain, constipation, headache, lightheadedness, or syncope. Hospital Course Hospital Course Hospital Course: 55-year-old who presented with dizziness, nausea, vomiting. Findings most consistent with BPPV. CTs obtained that were negative for acute findings. CTAs did not show any occlusions. Was monitored over the weekend. Symptoms showed gradual improvement. Initiated on scopolamine patch and meclizine. Dizziness resolving to the point patient can ambulate independently, is no longer having nausea, able to tolerate p.o. intake. Amado maneuver performed with some improvement in symptoms dizziness. Recommended she continue Amado maneuver daily to help resolve symptoms. Prescribe Zofran for potential nausea and meclizine to take home for continued treatment of vertigo. At this time differential includes BPPV, vestibular neuritis, cerebellar stroke.stroke unlikely and CTs unremarkable. MRI not obtained due to improvement in symptoms. Would consider MRI as an outpatient if symptoms recur or do not resolve over the next week. No preceding illness. Vestibular neuritis unlikely. Given her significant work outside in the heat and extensive zero-turn going with repetitive directional change along with diphenhydramine as a sleep aid, condition most likely related to otolith dysfunction. Pleased with clinical improvement. Labs remained normal. Patient overall doing well. Stable discharge home with close follow-up as an outpatient. Total time spent on discharge 32 minutes in counseling, discussion with family, documentation, chart review, and direct care with patient. Exam Data for Last 24 hours Vital signs and Labs for Last 24 Hours: Temp Pulse Resp BP Pulse Ox O2 Del Method 97.8 F 91 H 16 101/43 L 97 Room Air 04/17/25 04:00 04/17/25 04:00 04/17/25 04:00 04/17/25 04:00 04/17/25 04:00 04/17/25 07:00 Laboratory Results - last 24 hr 04/16/25 19:10: WBC 11.3 H, RBC 5.20, Hgb 15.2, Hct 43.5, MCV 83.7, MCH 29.2, MCHC 34.9, RDW 12.1, Plt Count 294, MPV 8.9, Neut % (Auto) 86.8 H, Lymph % (Auto) 10.8, [place] % (Auto) 1.7, Eos % (Auto) 0.0 L, Baso % (Auto) 0.3, Neut # (Auto) 9.9 H, Lymph # (Auto) 1.2, [place] # (Auto) 0.2, Eos # (Auto) 0.0, Baso # (Auto) 0.0, D-Dimer 0.46, Sodium 137, Potassium 3.4 L, Chloride 101, Carbon Dioxide 23, Anion Gap 16.4 H, BUN 15, Creatinine 0.70, Estimated Creat Clear 100, Estimated GFR 88, Est GFR ( Amer) 106, Glucose 133 H, Calcium 10.2, Magnesium 2.1, Total Bilirubin 1.1, AST 32, ALT 20, Alkaline Phosphatase 83, Troponin I < 0.01, NT-Pro-B Natriuret Pep 61.6, Total Protein 8.4 H, Albumin 4.6, Globulin 3.8 H, Albumin/Globulin Ratio 1.2, TSH 0.87, Thyroxine (T4) 11.1 H , Plasma/Serum Alcohol < 10 04/16/25 19:23: Urine Color Yellow, Urine Appearance Sl cloudy, Urine pH >= 9.0 H, Ur Specific Caret 1.015, Urine Protein Negative, Urine Glucose (UA) Negative, Urine Ketones 3+, Urine Blood Negative, Urine Nitrate Negative, Urine Bilirubin Negative, Urine Urobilinogen 0.2, Ur Leukocyte Esterase Negative, Urine RBC 5-10, Urine WBC 3-5, Ur Squamous Epith Cells 10-20, Amorphous Sediment 1+, Urine Bacteria 2+, Urine Mucus 1+, Urine Opiates Screen Negative, Urine Methadone Screen Negative, Ur Barbituates Screen Negative, Ur Phencyclidine Scrn Negative, Ur Amphetamines Screen Negative, U Benzodiazepines Scrn Negative, Urine Cocaine Screen Negative, U Marijuana (THC) Screen Negative 04/16/25 21:07: Troponin I < 0.01 04/17/25 00:37: Troponin I < 0.01 I & O for Last 24 hours: Intake & Output 04/14/25 04/15/25 04/16/25 04/17/25 23:59 23:59 23:59 23:59 Intake Total 1000 / 1000 Balance 1000 / 1000 Weight 74.253 kg 76.204 kg Constitutional Constitutional: no acute distress, average body habitus and cooperative *Routine HEENT Exam Head: Present normocephalic Eye: Present EOMI and PERRL ENT: Present mucous membranes moist, external ear normal and TM's clear bilaterally Comments: 3 beat nystagmus to the right; ears with normal TMs bilaterally *Routine Neck Exam Neck: Present supple; Absent lymphadenopathy *Routine Respiratory Exam Respiratory: Present CTA bilaterally *Routine Cardiovascular Exam Cardiovascular: Present RRR *Routine Abdominal Exam Abdominal: Present soft and normoactive bowel sounds; Absent tenderness *Routine Rectal Exam Patient deferred: visual exam *Routine Exam Patient deferred: external exam *Routine Extremities Exam Extremities: Absent cyanosis, clubbing or edema *Routine Skin Exam Skin: Present intact and warm; Absent rash *Routine Neurological Exam Neurological: Present alert, oriented X3, moving all extremities and nystagmus (3 beats to the right); Absent sensory deficit, motor deficit or altered mental status Results Data Completed and Pending Labs on day of discharge: Labs from last 24 hours 04/17/25 04/16/25 04/16/25 00:37 21:07 19:23 WBC RBC Hgb Hct MCV MCH MCHC RDW Plt Count MPV Neut % (Auto) Lymph % (Auto) [place] % (Auto) Eos % (Auto) Baso % (Auto) Neut # (Auto) Lymph # (Auto) [place] # (Auto) Eos # (Auto) Baso # (Auto) D-Dimer Sodium Potassium Chloride Carbon Dioxide Anion Gap BUN Creatinine Estimated Creat Clear Estimated GFR Est GFR ( Amer) Glucose Calcium Magnesium Total Bilirubin AST ALT Alkaline Phosphatase Troponin I < 0.01 < 0.01 NT-Pro-B Natriuret Pep Total Protein Albumin Globulin Albumin/Globulin Ratio TSH Thyroxine (T4) Urine Color Yellow Urine Appearance Sl cloudy Urine pH >= 9.0 H Ur Specific Caret 1.015 Urine Protein Negative Urine Glucose (UA) Negative Urine Ketones 3+ Urine Blood Negative Urine Nitrate Negative Urine Bilirubin Negative Urine Urobilinogen 0.2 Ur Leukocyte Esterase Negative Urine RBC 5-10 Urine WBC 3-5 Ur Squamous Epith Cells 10-20 Amorphous Sediment 1+ Urine Bacteria 2+ Urine Mucus 1+ Urine Opiates Screen Negative Urine Methadone Screen Negative Ur Barbituates Screen Negative Ur Phencyclidine Scrn Negative Ur Amphetamines Screen Negative U Benzodiazepines Scrn Negative Urine Cocaine Screen Negative U Marijuana (THC) Screen Negative Plasma/Serum Alcohol 04/16/25 19:10 WBC 11.3 H RBC 5.20 Hgb 15.2 Hct 43.5 MCV 83.7 MCH 29.2 MCHC 34.9 RDW 12.1 Plt Count 294 MPV 8.9 Neut % (Auto) 86.8 H Lymph % (Auto) 10.8 [place] % (Auto) 1.7 Eos % (Auto) 0.0 L Baso % (Auto) 0.3 Neut # (Auto) 9.9 H Lymph # (Auto) 1.2 [place] # (Auto) 0.2 Eos # (Auto) 0.0 Baso # (Auto) 0.0 D-Dimer 0.46 Sodium 137 Potassium 3.4 L Chloride 101 Carbon Dioxide 23 Anion Gap 16.4 H BUN 15 Creatinine 0.70 Estimated Creat Clear 100 Estimated GFR 88 Est GFR ( Amer) 106 Glucose 133 H Calcium 10.2 Magnesium 2.1 Total Bilirubin 1.1 AST 32 ALT 20 Alkaline Phosphatase 83 Troponin I < 0.01 NT-Pro-B Natriuret Pep 61.6 Total Protein 8.4 H Albumin 4.6 Globulin 3.8 H Albumin/Globulin Ratio 1.2 TSH 0.87 Thyroxine (T4) 11.1 H Urine Color Urine Appearance Urine pH Ur Specific Caret Urine Protein Urine Glucose (UA) Urine Ketones Urine Blood Urine Nitrate Urine Bilirubin Urine Urobilinogen Ur Leukocyte Esterase Urine RBC Urine WBC Ur Squamous Epith Cells Amorphous Sediment Urine Bacteria Urine Mucus Urine Opiates Screen Urine Methadone Screen Ur Barbituates Screen Ur Phencyclidine Scrn Ur Amphetamines Screen U Benzodiazepines Scrn Urine Cocaine Screen U Marijuana (THC) Screen Plasma/Serum Alcohol < 10 DS: Diagnosis Discharge Diagnosis (1) Vertigo: Status: Acute Code(s): R42 - Dizziness and giddiness (2) Nausea & vomiting: Status: Acute Code(s): R11.2 - Nausea with vomiting, unspecified (3) Anxiety: Status: Acute Code(s): F41.9 - Anxiety disorder, unspecified (4) On deep vein thrombosis (DVT) prophylaxis: Status: Acute Code(s): Z79.899 - Other adjunct faculty for medical terminology (current) drug therapy Meds Home Medications and Allergies Home Medications ?Medication ?Instructions ?Recorded ?Confirmed ?Type meclizine 25 mg tablet 25 mg PO TIDP PRN Dizziness 10 04/18/25 Rx days #30 tabs ondansetron HCl 4 mg tablet 4 mg PO Q8H PRN nausea and 04/18/25 Rx vomiting #14 tabs New Prescriptions to Start Prescriptions: Hector Talamantes ondansetron HCl Hector Faye Allergies Allergy/AdvReac Type Severity Reaction Status Date / Time albuterol AdvReac Mild Numbness Verified 04/16/25 18:01 Discharge Plan Disposition Patient Disposition: Home, Self-Care Condition: Good Follow up Plan Follow up with: Tyree Charles MD [Primary Care Provider, Medical] - Enter time for follow up Damion Mejias MD [Staff Physician, Cardiology] - Enter time for follow up Prescriptions/Medication Reconciliation: New meclizine 25 mg Tablet 25 mg PO TIDP PRN (Reason: Dizziness) 10 Days Qty: 30 0RF ondansetron HCl 4 mg tablet 4 mg PO Q8H PRN (Reason: nausea and vomiting) Qty: 14 0RF Problem Reconciliation Problems Reviewed?: Yes Patient Discharge Instructions ACTIVITY: Continue current activity DIET: continue same diet Patient Instructions: DI for Vertigo Print Language: Palestinian Providers Primary Care Provider: Provider,Referral Admit Provider: Hector Faye Attending Provider: Hector Faye
--- NOTE | 2025-04-20 10:42 | SW/DCPLANNER ---
Phoned patient x2. Left message with name and call back number. Elaine Gonzalez
== END 2025-04-18 11:27 | disposition home or self-care (01) ==
LOC: ER 22:08 → 2ND 22:57
PROVIDERS: Nurse Practitioner Family; Physician Assistant; Admitting Provider Internal Medicine Adolescent Medicine; Emergency Provider Emergency Medicine; Visit Provider Internal Medicine Adolescent Medicine
DX: R42 Dizziness and giddiness (principal); R11.2 Nausea with vomiting, unspecified; F41.9 Anxiety disorder, unspecified; R06.02 Shortness of breath; D72.829 Elevated white blood cell count, unspecified; E87.6 Hypokalemia; Z88.8 Allergy status to other drugs, medicaments and biological substances; Z79.899 Other long term (current) drug therapy
CPT/HCPCS: 36415; 70450; 70496; 70498; 71045; 80048; 80053; 80307; 80320; 81001; 83735; 83880; 84436; 84443; 84484; 85025; 85378; 87086; 93005; 96361; 96372; 96374; 96375; 99285; G0378; J1650; J2405; J3360; J3410; J7030; J7120; Q9967